=== PATIENT | male | born 1955 | race African-American/Black ===

== ENCOUNTER 2017-07-13 22:20 | Emergency (ER) | payer BC ==
[~2017-07-13] VITALS: Ht 193 cm; Wt 122.7 kg
[~2017-07-13 22:20] MED LIST: DIAZ5 PO; LISI-357 PO; MOTI25CH PO
[2017-07-13 22:22] VITALS: BP 143/83; PULSE 91; RESP 16; TEMP 98.3; O2SAT 98
[2017-07-13] MEDS ORDERED: CEPHALEXIN MONOHYDRATE 500 MG CAP PO ONE (23:00)
[2017-07-13] MEDS ORDERED: TETANUS/DIPHTHERIA TOXOID PEDIATRIC 0.5 ML VIAL IM ONE (23:00)
[2017-07-13] MEDS ORDERED: CEPH-460 PO (23:11)
--- NOTE | 2017-07-13 23:12 | PD ---
HPI Chief Complaint: Laceration/Skin Injury Time Seen by Provider: 22:49 Travel History International Travel<30 days: No Contact w/Intl Traveler<30days: No Traveled to known affect area: No History of Present Illness HPI Patient is a 61-year-old male presents to emergency room with complaints of a splinter to his left heel. Patient reports that he accidently stepped onto a piece of wood 2 days ago - he tried to remove the splinter himself but couldn' t. Reports pain with ambulation. No fever/chills. No other c/o at this time. 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) Psychiatric: No Reproductive: No Respiratory: No Integumentary: Yes (ATHLETES FOOT BILATERAL) Ulcer: Yes (1989) Tetanus Vaccination: Unknown Influenza Vaccination: No Past Surgical History Oral Surgery: Yes (TOOTH EXTRACTIONS) Social History Alcohol Use: No Tobacco Use: Yes (1 PPD) Substance Use: No Allergies-Medications (Allergen,Severity, Reaction): Coded Allergies: No Known Allergies (Verified Adverse Reaction, Unknown, 07/13/17) Reported Meds & Prescriptions Reported Meds & Active Scripts Active Keflex (Cephalexin) 500 Mg Cap 500 Mg PO Q6H 7 Days Review of Systems General / Constitutional: No: Fever Eyes: No: Visual changes HENT: No: Headaches Cardiovascular: No: Chest Pain or Discomfort Respiratory: No: Shortness of Breath Gastrointestinal: No: Abdominal Pain Genitourinary: No: Dysuria Musculoskeletal: No: Pain Skin: Positive Other (splinter to left heel), No Rash Neurologic: No: Weakness Psychiatric: No: Depression Endocrine: No: Polydipsia Hematologic/Lymphatic: No: Easy Bruising Physical Exam Narrative GENERAL: Well-nourished, well-developed patient. SKIN: Focused skin assessment warm/dry. HEAD: Normocephalic. EYES: No scleral icterus. No injection or drainage. NECK: Supple, trachea midline. No JVD or lymphadenopathy. CARDIOVASCULAR: Regular rate and rhythm without murmurs, gallops, or rubs. RESPIRATORY: Breath sounds equal bilaterally. No accessory muscle use. GASTROINTESTINAL: Abdomen soft, non-tender, nondistended. MUSCULOSKELETAL: No cyanosis, or edema. Patient with splinter to left heel - no signs of infection, swelling or cellulitis or drainage BACK: Nontender without obvious deformity. No CVA tenderness. Data Data Last Documented VS Vital Signs Date Time Temp Pulse Resp B/P (MAP) Pulse Ox O2 Delivery O2 Flow Rate FiO2 07/13/17 22:22 98.3 91 16 143/83 (103) 98 Room Air Orders Orders Tetanus-Diphther Tox Peds Inj (Tetanus-D (07/13/17 23:00) Cephalexin (Keflex) (07/13/17 23:00) Mandatory Outpatient Referral (07/13/17 23:08) Ibuprofen (Motrin) (07/13/17 23:15) [facility] Medical Decision Making Medical Screen Exam Complete: Yes Emergency Medical Condition: Yes Medical Record Reviewed: Yes Interpretation(s) Vital Signs Date Time Temp Pulse Resp B/P (MAP) Pulse Ox O2 Delivery O2 Flow Rate FiO2 07/13/17 22:22 98.3 91 16 143/83 (103) 98 Room Air Differential Diagnosis splinter Narrative Course 61-year-old male with splinter to his left heel for the past 2 days, I attempted to remove the splinter, I was unable to remove it. I did review case with Dr. Baugh, patient can be seen in the office on Saturday for splinter removal. Plan to start on kelfex and update tetanus A Mandatory referral was placed for Dr. Baugh Diagnosis Primary Impression: Splinter in skin Referrals: Saul Baugh DPM Patient Instructions: General Instructions Departure Forms: Tests/Procedures, Work Release Enter return to work date: Jul 18, 2017 Additional Instructions: Please follow-up with Dr. Baugh in the office on Saturday for splinter removal Return to ER as needed Please take all medications as prescribed Med/Other Pt SpecificInfo: Prescription(s) given Scripts Cephalexin (Keflex) 500 Mg Cap 500 MG PO Q6H for Infection for 7 Days, #28 CAP 0 Refills Prov: Michelle Pleitez DO 07/13/17 Disposition: 01 DISCHARGE HOME Condition: Stable Michelle Pleitez DO Jul 13, 2017 23:12
[2017-07-13] MEDS ORDERED: IBUPROFEN 600 MG TAB PO ONE (23:15)
[2017-07-13] MEDS ORDERED: TETANUS/DIPHTHERIA TOXOID ADULT 0.5 ML VIAL IM ONE (23:30)
== END 2017-07-13 23:37 | disposition home or self-care (01) ==
LOC: NEPD 22:20
DX: S90.852A Superficial foreign body, left foot, initial encounter (principal); F17.200 Nicotine dependence, unspecified, uncomplicated; W45.8XXA Other foreign body or object entering through skin, initial encounter; Z23 Encounter for immunization
CPT/HCPCS: 90471; 90714